=== PATIENT | female | born 1940 | race Caucasian/White ===

== ENCOUNTER 2020-04-14 13:24 | Inpatient (IN) ==
[2020-04-14] MEDS ORDERED: ASPIRIN 325 MG TABLET PO STA (13:34)
[2020-04-14 14:18] LABS: Basophils % 0.3 % (0.0-0.8); Hematocrit 44.9 VOL% (35.7-47.0); Hemoglobin 14.6 GM/DL (12.0-16.0); Immature Granulocytes % 0.8 %; Immature Granulocytes Absolute 0.06 #; Lymphocytes # 0.8 10*3/uL (1.4-4.0); Lymphocytes % 10.5 % (21.3-54.2); Mean Corpuscular HGB Conc 32.5 GM/DL (32-36); Mean Corpuscular Volume 90.2 FL (87-102); Mean Platelet Volume 10.5 FL (9.6-12.0); Monocytes % 9.1 % (1.7-12.7); Neutrophils % 79.3 % (38.7-73.9); Platelet Count 211 T/CUMM (130-400); Red Blood Count 4.98 MC/CUMM (3.8-5.5); Red Cell Distribution Width 13.5 % (9.3-17.3); White Blood Count 7.7 T/CUMM (4-12)
[2020-04-14 14:28] LABS: PT Patient Result 10.9 SECS (9.8-11.9)
[2020-04-14 14:32] LABS: ABG Base Excess 9.8 MMOL/L (-2.5-2.5); ABG HCO3 33.3 MMOL/L (20-26); ABG Oxygen Saturation 91.6 % (95-100); ABG PCO2 50.1 MM HG (35-48); ABG PH 7.458 (7.35-7.45); ABG PO2 59.6 MM HG (80-95); ABG TCO2 30.7 MMOL/L (23-27)
[2020-04-14] MEDS ORDERED: DEXAMETHASONE 4 MG/1 ML VIAL IV STA (14:39)
[2020-04-14] MEDS ORDERED: MEROPENEM 2,000 MG in SODIUM CHLORIDE 0.9% 100 ML IV ONE (14:40)
[2020-04-14 14:45] LABS: Alanine Aminotransferase 18 U/L (13-56); Albumin 2.7 G/DL (3.4-5.0); Alkaline Phosphatase 89 U/L (45-117); Aspartate Amino Transferase 31 U/L (0-37); Blood Urea Nitrogen 30 MG/DL (7-18); Calcium 8.5 MG/DL (8.5-10.1); Estimated Glom Filtration Rate 53 ML/MIN; Glucose 219 MG/DL (74-106); Osmolality,Calculated 293.3 MOS/KG (273-304); Total Protein 7.1 G/DL (6.4-8.3)
[2020-04-14] MEDS ORDERED: POTASSIUM CHLORIDE 20 MEQ TABLET PO STA (15:35)
[2020-04-14] MEDS ORDERED: MEROPENEM 500 MG VIAL ONE (16:29)
[2020-04-14] MEDS ORDERED: ONDANSETRON 4 MG/2 ML VIAL IV PRN (16:41)
[2020-04-14] MEDS ORDERED: DEXTROSE 50% 25 GM/50 ML VIAL IV PRN (16:41)
[2020-04-14] MEDS ORDERED: GLUCAGON 1 MG VIAL IM PRN (16:41)
[2020-04-14] MEDS: ENOXAPARIN 40 MG/0.4 ML SYRINGE SUBCUT SCH (18:19)
[2020-04-14] MEDS: INSULIN LISPRO 100 UNIT/ML SUBCUT SCH (21:05)
[2020-04-14] MEDS: FAMOTIDINE 20 MG TABLET PO SCH (21:05)
[2020-04-14] MEDS: ASCORBIC ACID 500 MG TABLET PO SCH (21:05)
[2020-04-15] MEDS: ENOXAPARIN 40 MG/0.4 ML SYRINGE SUBCUT SCH ×2 (05:32→16:38)
[2020-04-15 06:14] LABS: Basophils % 0.2 % (0.0-0.8); Hematocrit 43.4 VOL% (35.7-47.0); Hemoglobin 13.9 GM/DL (12.0-16.0); Immature Granulocytes % 0.6 %; Immature Granulocytes Absolute 0.03 #; Lymphocytes # 0.6 10*3/uL (1.4-4.0); Lymphocytes % 12.3 % (21.3-54.2); Mean Corpuscular Volume 91.6 FL (87-102); Mean Platelet Volume 11.1 FL (9.6-12.0); Monocytes % 3.6 % (1.7-12.7); Neutrophils % 83.3 % (38.7-73.9); Platelet Count 205 T/CUMM (130-400); Red Blood Count 4.74 MC/CUMM (3.8-5.5); Red Cell Distribution Width 13.1 % (9.3-17.3)
[2020-04-15 06:30] LABS: PT Patient Result 10.8 SECS (9.8-11.9)
[2020-04-15 06:45] LABS: Albumin 2.3 G/DL (3.4-5.0); Bilirubin,Total 0.8 MG/DL (0.2-1.0); Calcium 8.6 MG/DL (8.5-10.1); Ferritin 219.1 ng/ml (8-252); Osmolality,Calculated 294.3 MOS/KG (273-304); Risk Ratio 2.33; Thyroid Stimulating Hormone 0.41 uIU/ml (0.358-3.74); Total Protein 6.4 G/DL (6.4-8.3)
[2020-04-15 07:18] LABS: Sedimentation Rate-Westergren 68 MM/HR (0-30)
[2020-04-15] MEDS: FAMOTIDINE 20 MG TABLET PO SCH ×2 (09:22→21:29)
[2020-04-15] MEDS: CHOLECALCIFEROL 1,000 UNIT TABLET PO SCH (09:22)
[2020-04-15] MEDS: INSULIN LISPRO 100 UNIT/ML SUBCUT SCH ×4 (09:22→21:29)
[2020-04-15] MEDS: ZINC GLUCONATE 50 MG TABLET PO SCH (09:23)
[2020-04-15] MEDS: DEXAMETHASONE 4 MG/1 ML VIAL IV SCH (09:23)
[2020-04-15] MEDS: ASCORBIC ACID 500 MG TABLET PO SCH ×2 (09:23→21:27)
[2020-04-15] MEDS ORDERED: REMDESIVIR 200 MG in SODIUM CHLORIDE 0.9% 210 ML IV ONE (11:00)
[2020-04-15] MEDS: MEROPENEM 500 MG in SODIUM CHLORIDE 0.9% 100 ML IV SCH ×3 (11:49→21:41)
[2020-04-15] MEDS: amLODIPine 5 MG TABLET PO SCH (12:15)
[2020-04-15] MEDS: PANTOPRAZOLE 40 MG TABLET PO SCH (12:15)
[2020-04-15] MEDS: LEVOTHYROXINE 100 MCG TABLET PO SCH (12:15)
[2020-04-15] MEDS: allopurinoL 300 MG TABLET PO SCH (12:15)
[2020-04-15] MEDS: MONTELUKAST 10 MG TABLET PO SCH (12:15)
[2020-04-15] MEDS: carvediloL 25 MG TABLET PO SCH ×2 (12:15→21:27)
[2020-04-15] MEDS: MELATONIN 3 MG TABLET PO PRN (21:26)
[2020-04-16] MEDS: MEROPENEM 500 MG in SODIUM CHLORIDE 0.9% 100 ML IV SCH ×3 (05:17→17:00)
[2020-04-16] MEDS: ENOXAPARIN 40 MG/0.4 ML SYRINGE SUBCUT SCH ×2 (05:17→17:00)
[2020-04-16 05:33] LABS: Basophils % 0.1 % (0.0-0.8); Hematocrit 44.5 VOL% (35.7-47.0); Hemoglobin 14.2 GM/DL (12.0-16.0); Immature Granulocytes % 0.6 %; Immature Granulocytes Absolute 0.04 #; Lymphocytes # 0.8 10*3/uL (1.4-4.0); Lymphocytes % 10.5 % (21.3-54.2); Mean Corpuscular HGB Conc 31.9 GM/DL (32-36); Mean Corpuscular Volume 91.6 FL (87-102); Mean Platelet Volume 10.9 FL (9.6-12.0); Monocytes % 8.3 % (1.7-12.7); Neutrophils % 80.5 % (38.7-73.9); Platelet Count 231 T/CUMM (130-400); Red Blood Count 4.86 MC/CUMM (3.8-5.5); Red Cell Distribution Width 13.1 % (9.3-17.3); White Blood Count 7.1 T/CUMM (4-12)
[2020-04-16 05:49] LABS: Albumin 2.4 G/DL (3.4-5.0); Bilirubin,Total 0.5 MG/DL (0.2-1.0); Calcium 8.7 MG/DL (8.5-10.1); Ferritin 295.1 ng/ml (8-252); Osmolality,Calculated 294.1 MOS/KG (273-304); Total Protein 6.4 G/DL (6.4-8.3)
[2020-04-16] MEDS: LEVOTHYROXINE 100 MCG TABLET PO SCH (06:11)
[2020-04-16 07:07] LABS: Sedimentation Rate-Westergren 70 MM/HR (0-30)
[2020-04-16] MEDS ORDERED: SODIUM CHLORIDE 0.9% 1,000 ML IV PRN (08:47)
[2020-04-16] MEDS: DEXAMETHASONE 4 MG/1 ML VIAL IV SCH (09:36)
[2020-04-16] MEDS: PANTOPRAZOLE 40 MG TABLET PO SCH (09:36)
[2020-04-16] MEDS: allopurinoL 300 MG TABLET PO SCH (09:36)
[2020-04-16] MEDS: FAMOTIDINE 20 MG TABLET PO SCH ×2 (09:36→20:10)
[2020-04-16] MEDS: MONTELUKAST 10 MG TABLET PO SCH (09:36)
[2020-04-16] MEDS: ASCORBIC ACID 500 MG TABLET PO SCH ×2 (09:36→20:10)
[2020-04-16] MEDS: CHOLECALCIFEROL 1,000 UNIT TABLET PO SCH (09:36)
[2020-04-16] MEDS: amLODIPine 5 MG TABLET PO SCH (09:37)
[2020-04-16] MEDS: carvediloL 25 MG TABLET PO SCH ×2 (09:37→20:10)
[2020-04-16] MEDS: INSULIN LISPRO 100 UNIT/ML SUBCUT SCH ×4 (09:38→20:10)
[2020-04-16] MEDS: REMDESIVIR 100 MG in SODIUM CHLORIDE 0.9% 100 ML IV SCH (09:45)
[2020-04-16] MEDS: ZINC OXIDE 16% PASTE 57 GM TUBE TOP SCH ×2 (10:15→20:11)
[2020-04-16] MEDS: ZINC GLUCONATE 50 MG TABLET PO SCH (10:15)
[2020-04-16] MEDS ORDERED: LINACLOTIDE 145 MCG CAPSULE PO PRN (11:41)
[2020-04-16] MEDS: MELATONIN 3 MG TABLET PO PRN (20:09)
[2020-04-17] MEDS: MEROPENEM 500 MG in SODIUM CHLORIDE 0.9% 100 ML IV SCH ×5 (00:37→21:30)
[2020-04-17 05:42] LABS: Basophils % 0.1 % (0.0-0.8); Hematocrit 40.1 VOL% (35.7-47.0); Hemoglobin 12.9 GM/DL (12.0-16.0); Immature Granulocytes % 0.7 %; Immature Granulocytes Absolute 0.05 #; Lymphocytes # 0.7 10*3/uL (1.4-4.0); Lymphocytes % 10.5 % (21.3-54.2); Mean Corpuscular HGB Conc 32.2 GM/DL (32-36); Mean Corpuscular Volume 90.3 FL (87-102); Mean Platelet Volume 10.5 FL (9.6-12.0); Monocytes % 8.6 % (1.7-12.7); Neutrophils % 80.1 % (38.7-73.9); Platelet Count 255 T/CUMM (130-400); Red Blood Count 4.44 MC/CUMM (3.8-5.5); White Blood Count 6.8 T/CUMM (4-12)
[2020-04-17] MEDS: ENOXAPARIN 40 MG/0.4 ML SYRINGE SUBCUT SCH ×2 (05:43→17:10)
[2020-04-17 06:02] LABS: Albumin 2.2 G/DL (3.4-5.0); Bilirubin,Total 0.7 MG/DL (0.2-1.0); Calcium 8.6 MG/DL (8.5-10.1); Ferritin 316.5 ng/ml (8-252); Osmolality,Calculated 290.4 MOS/KG (273-304); Total Protein 5.9 G/DL (6.4-8.3)
[2020-04-17] MEDS: LEVOTHYROXINE 100 MCG TABLET PO SCH (06:11)
[2020-04-17] MEDS: carvediloL 25 MG TABLET PO SCH ×2 (08:15→20:08)
[2020-04-17] MEDS: guaiFENesin/DM ER 600-30 MG TABLET PO PRN (08:15)
[2020-04-17] MEDS: DEXAMETHASONE 4 MG/1 ML VIAL IV SCH (08:15)
[2020-04-17] MEDS: PANTOPRAZOLE 40 MG TABLET PO SCH (08:16)
[2020-04-17] MEDS: CHOLECALCIFEROL 1,000 UNIT TABLET PO SCH (08:16)
[2020-04-17] MEDS: allopurinoL 300 MG TABLET PO SCH (08:16)
[2020-04-17] MEDS: FAMOTIDINE 20 MG TABLET PO SCH ×2 (08:16→20:08)
[2020-04-17] MEDS: amLODIPine 5 MG TABLET PO SCH (08:16)
[2020-04-17] MEDS: ASCORBIC ACID 500 MG TABLET PO SCH ×2 (08:16→20:08)
[2020-04-17] MEDS: MONTELUKAST 10 MG TABLET PO SCH (08:16)
[2020-04-17] MEDS: REMDESIVIR 100 MG in SODIUM CHLORIDE 0.9% 100 ML IV SCH (08:17)
[2020-04-17] MEDS: INSULIN LISPRO 100 UNIT/ML SUBCUT SCH ×4 (08:37→20:08)
[2020-04-17] MEDS: ZINC OXIDE 16% PASTE 57 GM TUBE TOP SCH ×2 (08:38→20:08)
[2020-04-17] MEDS: ZINC GLUCONATE 50 MG TABLET PO SCH (11:23)
[2020-04-17] MEDS: MELATONIN 3 MG TABLET PO PRN (20:07)
[2020-04-18] MEDS: MEROPENEM 500 MG in SODIUM CHLORIDE 0.9% 100 ML IV SCH ×3 (03:42→16:44)
[2020-04-18] MEDS: ENOXAPARIN 40 MG/0.4 ML SYRINGE SUBCUT SCH ×2 (04:17→16:44)
[2020-04-18 05:31] LABS: Calcium 8.6 MG/DL (8.5-10.1); Osmolality,Calculated 289.3 MOS/KG (273-304)
[2020-04-18] MEDS: LEVOTHYROXINE 100 MCG TABLET PO SCH (06:01)
[2020-04-18] MEDS: DEXAMETHASONE 4 MG/1 ML VIAL IV SCH (09:00)
[2020-04-18] MEDS: REMDESIVIR 100 MG in SODIUM CHLORIDE 0.9% 100 ML IV SCH (10:50)
[2020-04-18] MEDS: carvediloL 25 MG TABLET PO SCH ×2 (10:56→20:19)
[2020-04-18] MEDS: ZINC OXIDE 16% PASTE 57 GM TUBE TOP SCH (10:56)
[2020-04-18] MEDS: INSULIN LISPRO 100 UNIT/ML SUBCUT SCH ×3 (10:56→20:20)
[2020-04-18] MEDS: PANTOPRAZOLE 40 MG TABLET PO SCH (10:57)
[2020-04-18] MEDS: amLODIPine 5 MG TABLET PO SCH (10:57)
[2020-04-18] MEDS: MONTELUKAST 10 MG TABLET PO SCH (10:57)
[2020-04-18] MEDS: FAMOTIDINE 20 MG TABLET PO SCH ×2 (10:57→20:19)
[2020-04-18] MEDS: ASCORBIC ACID 500 MG TABLET PO SCH ×2 (10:58→20:19)
[2020-04-18] MEDS: allopurinoL 300 MG TABLET PO SCH (10:58)
[2020-04-18] MEDS: CHOLECALCIFEROL 1,000 UNIT TABLET PO SCH (10:58)
[2020-04-18] MEDS: ZINC GLUCONATE 50 MG TABLET PO SCH (10:58)
[2020-04-18] MEDS ORDERED: POTASSIUM CHLORIDE 20 MEQ TABLET PO PRN (12:08)
[2020-04-18 17:53] LABS: Bilirubin,Urine Negative (Negative); Blood, Urine Negative (Negative); Glucose,Urine (UA) 50 mg/dL (Negative); Ketones,Urine 20 mg/dL (Negative); Nitrite,Urine Negative (Negative); Protein,Urine Negative; Squamous Epithelial Cell,Urine Occasional /HPF (0-10); Urine Appearance CLEAR (Clear); Urine Color Straw (Yellow); Urine Specific Gravity 1.011 (1.001-1.035)
[2020-04-19] MEDS: ZINC OXIDE 16% PASTE 57 GM TUBE TOP SCH ×3 (01:13→20:27)
[2020-04-19 04:59] LABS: Basophils % 0.2 % (0.0-0.8); Eosinophils # 0.1 10*3/uL (0.0-0.87); Eosinophils % 0.7 % (0.00-10.9); Hematocrit 44.5 VOL% (35.7-47.0); Hemoglobin 14.8 GM/DL (12.0-16.0); Immature Granulocytes % 1.5 %; Immature Granulocytes Absolute 0.14 #; Lymphocytes # 1.1 10*3/uL (1.4-4.0); Lymphocytes % 11.7 % (21.3-54.2); Mean Corpuscular HGB Conc 33.3 GM/DL (32-36); Mean Corpuscular Volume 87.8 FL (87-102); Mean Platelet Volume 10.4 FL (9.6-12.0); Monocytes % 9.6 % (1.7-12.7); Neutrophils % 76.3 % (38.7-73.9); Platelet Count 309 T/CUMM (130-400); Red Blood Count 5.07 MC/CUMM (3.8-5.5); Red Cell Distribution Width 12.9 % (9.3-17.3); White Blood Count 9.2 T/CUMM (4-12)
[2020-04-19 05:00] LABS: Albumin 2.5 G/DL (3.4-5.0); Bilirubin,Total 1.3 MG/DL (0.2-1.0); Calcium 8.3 MG/DL (8.5-10.1); Ferritin 426.6 ng/ml (8-252); Osmolality,Calculated 287.3 MOS/KG (273-304); Total Protein 6.3 G/DL (6.4-8.3)
[2020-04-19] MEDS: POTASSIUM CHLORIDE 20 MEQ TABLET PO PRN ×4 (06:00→16:01)
[2020-04-19] MEDS: MEROPENEM 500 MG in SODIUM CHLORIDE 0.9% 100 ML IV SCH ×6 (06:00→22:11)
[2020-04-19] MEDS: LEVOTHYROXINE 100 MCG TABLET PO SCH (06:00)
[2020-04-19] MEDS: ENOXAPARIN 40 MG/0.4 ML SYRINGE SUBCUT SCH ×2 (06:00→16:02)
[2020-04-19] MEDS: carvediloL 25 MG TABLET PO SCH ×2 (08:34→20:24)
[2020-04-19] MEDS: ASCORBIC ACID 500 MG TABLET PO SCH ×2 (08:34→20:24)
[2020-04-19] MEDS: allopurinoL 300 MG TABLET PO SCH (08:35)
[2020-04-19] MEDS: PANTOPRAZOLE 40 MG TABLET PO SCH (08:35)
[2020-04-19] MEDS: CHOLECALCIFEROL 1,000 UNIT TABLET PO SCH (08:35)
[2020-04-19] MEDS: MONTELUKAST 10 MG TABLET PO SCH (08:35)
[2020-04-19] MEDS: amLODIPine 5 MG TABLET PO SCH (08:35)
[2020-04-19] MEDS: FAMOTIDINE 20 MG TABLET PO SCH ×2 (08:36→20:24)
[2020-04-19] MEDS: DEXAMETHASONE 4 MG/1 ML VIAL IV SCH (08:36)
[2020-04-19] MEDS: INSULIN LISPRO 100 UNIT/ML SUBCUT SCH ×4 (08:37→20:25)
[2020-04-19] MEDS: REMDESIVIR 100 MG in SODIUM CHLORIDE 0.9% 100 ML IV SCH (08:45)
[2020-04-19] MEDS ORDERED: MAGNESIUM SULF RIDER 4 GM in PREMIX 1 EACH IV ONE (09:00)
[2020-04-19] MEDS: ZINC GLUCONATE 50 MG TABLET PO SCH (11:22)
[2020-04-19] MEDS: MELATONIN 3 MG TABLET PO PRN (20:23)
[2020-04-20] MEDS: MEROPENEM 500 MG in SODIUM CHLORIDE 0.9% 100 ML IV SCH ×4 (05:05→21:51)
[2020-04-20 05:11] LABS: Basophils % 0.3 % (0.0-0.8); Eosinophils % 0.1 % (0.00-10.9); Hematocrit 48.1 VOL% (35.7-47.0); Hemoglobin 15.9 GM/DL (12.0-16.0); Immature Granulocytes Absolute 0.19 #; Lymphocytes % 10.9 % (21.3-54.2); Mean Corpuscular HGB Conc 33.1 GM/DL (32-36); Mean Corpuscular Volume 87.3 FL (87-102); Mean Platelet Volume 10.1 FL (9.6-12.0); Neutrophils % 78.7 % (38.7-73.9); Platelet Count 362 T/CUMM (130-400); Red Blood Count 5.51 MC/CUMM (3.8-5.5); Red Cell Distribution Width 12.9 % (9.3-17.3); White Blood Count 9.4 T/CUMM (4-12)
[2020-04-20 05:43] LABS: Albumin 2.6 G/DL (3.4-5.0); Bilirubin,Total 1.1 MG/DL (0.2-1.0); Calcium 8.8 MG/DL (8.5-10.1); Osmolality,Calculated 287.4 MOS/KG (273-304); Total Protein 7.1 G/DL (6.4-8.3)
[2020-04-20 05:57] LABS: Band Neutrophils 1 % (0-10); Lymphocytes 15 % (20-55); Platelet Estimate Normal; Segmented Neutrophils 79 % (50-85); Total Cells Counted 100
[2020-04-20] MEDS: ENOXAPARIN 40 MG/0.4 ML SYRINGE SUBCUT SCH ×2 (06:16→19:16)
[2020-04-20] MEDS: LEVOTHYROXINE 100 MCG TABLET PO SCH (06:42)
[2020-04-20] MEDS: INSULIN LISPRO 100 UNIT/ML SUBCUT SCH ×4 (10:01→21:56)
[2020-04-20] MEDS: ZINC OXIDE 16% PASTE 57 GM TUBE TOP SCH ×2 (10:01→20:37)
[2020-04-20] MEDS: carvediloL 25 MG TABLET PO SCH ×2 (10:02→20:37)
[2020-04-20] MEDS: CHOLECALCIFEROL 1,000 UNIT TABLET PO SCH (10:02)
[2020-04-20] MEDS: ZINC GLUCONATE 50 MG TABLET PO SCH (10:02)
[2020-04-20] MEDS: amLODIPine 5 MG TABLET PO SCH (10:02)
[2020-04-20] MEDS: FAMOTIDINE 20 MG TABLET PO SCH ×2 (10:02→20:37)
[2020-04-20] MEDS: MONTELUKAST 10 MG TABLET PO SCH (10:02)
[2020-04-20] MEDS: ASCORBIC ACID 500 MG TABLET PO SCH ×2 (10:02→20:37)
[2020-04-20] MEDS: DEXAMETHASONE 4 MG/1 ML VIAL IV SCH (10:02)
[2020-04-20] MEDS: PANTOPRAZOLE 40 MG TABLET PO SCH (10:02)
[2020-04-20] MEDS: allopurinoL 300 MG TABLET PO SCH (10:02)
[2020-04-20] MEDS ORDERED: FUROSEMIDE 40 MG/4 ML VIAL IV ONE (13:39)
[2020-04-20] MEDS: MELATONIN 3 MG TABLET PO PRN (20:37)
[2020-04-20] MEDS: guaiFENesin/DM ER 600-30 MG TABLET PO PRN (20:37)
[2020-04-21] MEDS ORDERED: diphenhydrAMINE 50 MG/1 ML VIAL IV ONE (03:51)
[2020-04-21 04:36] LABS: ABG Base Excess 9.6 MMOL/L (-2.5-2.5); ABG HCO3 33.2 MMOL/L (20-26); ABG Oxygen Saturation 91.2 % (95-100); ABG PCO2 42.7 MM HG (35-48); ABG PH 7.508 (7.35-7.45); ABG PO2 56.1 MM HG (80-95); ABG TCO2 28.4 MMOL/L (23-27)
[2020-04-21] MEDS: MEROPENEM 500 MG in SODIUM CHLORIDE 0.9% 100 ML IV SCH ×4 (04:37→21:37)
[2020-04-21] MEDS: ENOXAPARIN 40 MG/0.4 ML SYRINGE SUBCUT SCH ×2 (05:59→20:36)
[2020-04-21] MEDS: LEVOTHYROXINE 100 MCG TABLET PO SCH (06:14)
[2020-04-21 06:27] LABS: Albumin 2.6 G/DL (3.4-5.0); Bilirubin,Total 0.8 MG/DL (0.2-1.0); Osmolality,Calculated 282.7 MOS/KG (273-304); Total Protein 7.1 G/DL (6.4-8.3)
[2020-04-21] MEDS: INSULIN LISPRO 100 UNIT/ML SUBCUT SCH ×4 (08:30→20:35)
[2020-04-21] MEDS: ZINC GLUCONATE 50 MG TABLET PO SCH (08:31)
[2020-04-21] MEDS: CHOLECALCIFEROL 1,000 UNIT TABLET PO SCH (08:31)
[2020-04-21] MEDS: amLODIPine 5 MG TABLET PO SCH (08:31)
[2020-04-21] MEDS: carvediloL 25 MG TABLET PO SCH ×2 (08:31→20:35)
[2020-04-21] MEDS: MONTELUKAST 10 MG TABLET PO SCH (08:31)
[2020-04-21] MEDS: DEXAMETHASONE 4 MG/1 ML VIAL IV SCH (08:31)
[2020-04-21] MEDS: PANTOPRAZOLE 40 MG TABLET PO SCH (08:31)
[2020-04-21] MEDS: ASCORBIC ACID 500 MG TABLET PO SCH ×2 (08:32→20:37)
[2020-04-21] MEDS: allopurinoL 300 MG TABLET PO SCH (08:32)
[2020-04-21] MEDS: ZINC OXIDE 16% PASTE 57 GM TUBE TOP SCH ×2 (08:32→20:35)
[2020-04-21] MEDS: FAMOTIDINE 20 MG TABLET PO SCH ×2 (08:32→20:37)
[2020-04-21] MEDS: MELATONIN 3 MG TABLET PO PRN (20:37)
[2020-04-21] MEDS: guaiFENesin/DM ER 600-30 MG TABLET PO PRN (20:38)
[2020-04-22 05:14] LABS: Basophils % 0.3 % (0.0-0.8); Hematocrit 46.5 VOL% (35.7-47.0); Hemoglobin 15.3 GM/DL (12.0-16.0); Immature Granulocytes % 2.1 %; Lymphocytes # 0.9 10*3/uL (1.4-4.0); Mean Corpuscular HGB Conc 32.9 GM/DL (32-36); Mean Corpuscular Volume 88.9 FL (87-102); Neutrophils % 82.6 % (38.7-73.9); Platelet Count 277 T/CUMM (130-400); Red Blood Count 5.23 MC/CUMM (3.8-5.5); White Blood Count 9.5 T/CUMM (4-12)
[2020-04-22] MEDS: MEROPENEM 500 MG in SODIUM CHLORIDE 0.9% 100 ML IV SCH ×3 (05:16→16:17)
[2020-04-22 05:44] LABS: Calcium 8.6 MG/DL (8.5-10.1); Osmolality,Calculated 280.7 MOS/KG (273-304)
[2020-04-22] MEDS: LEVOTHYROXINE 100 MCG TABLET PO SCH (06:00)
[2020-04-22] MEDS: INSULIN LISPRO 100 UNIT/ML SUBCUT SCH ×4 (08:23→21:12)
[2020-04-22] MEDS: ASCORBIC ACID 500 MG TABLET PO SCH ×2 (08:24→20:50)
[2020-04-22] MEDS: DEXAMETHASONE 4 MG/1 ML VIAL IV SCH (08:24)
[2020-04-22] MEDS: FAMOTIDINE 20 MG TABLET PO SCH ×2 (08:25→20:50)
[2020-04-22] MEDS: ZINC OXIDE 16% PASTE 57 GM TUBE TOP SCH ×2 (08:25→20:50)
[2020-04-22] MEDS: MONTELUKAST 10 MG TABLET PO SCH (08:25)
[2020-04-22] MEDS: ZINC GLUCONATE 50 MG TABLET PO SCH (08:25)
[2020-04-22] MEDS: PANTOPRAZOLE 40 MG TABLET PO SCH (08:25)
[2020-04-22] MEDS: ENOXAPARIN 40 MG/0.4 ML SYRINGE SUBCUT SCH ×2 (08:25→20:50)
[2020-04-22] MEDS: CHOLECALCIFEROL 1,000 UNIT TABLET PO SCH (08:25)
[2020-04-22] MEDS: allopurinoL 300 MG TABLET PO SCH (08:25)
[2020-04-22] MEDS: amLODIPine 5 MG TABLET PO SCH (08:25)
[2020-04-22] MEDS: carvediloL 25 MG TABLET PO SCH ×2 (08:25→20:50)
[2020-04-22] MEDS: CLORAZEPATE 3.75 MG TABLET PO PRN ×2 (11:55→20:50)
[2020-04-22] MEDS: guaiFENesin/DM ER 600-30 MG TABLET PO PRN (20:50)
[2020-04-23 05:22] LABS: Basophils % 0.2 % (0.0-0.8); Eosinophils % 0.1 % (0.00-10.9); Hematocrit 43.5 VOL% (35.7-47.0); Hemoglobin 14.1 GM/DL (12.0-16.0); Immature Granulocytes Absolute 0.18 #; Lymphocytes # 0.9 10*3/uL (1.4-4.0); Lymphocytes % 9.4 % (21.3-54.2); Mean Corpuscular HGB Conc 32.4 GM/DL (32-36); Mean Corpuscular Volume 88.8 FL (87-102); Mean Platelet Volume 10.6 FL (9.6-12.0); Monocytes % 7.9 % (1.7-12.7); Neutrophils % 80.4 % (38.7-73.9); Platelet Count 268 T/CUMM (130-400); Red Cell Distribution Width 12.8 % (9.3-17.3); White Blood Count 9.1 T/CUMM (4-12)
[2020-04-23 05:48] LABS: Albumin 2.3 G/DL (3.4-5.0); Bilirubin,Total 0.7 MG/DL (0.2-1.0); Calcium 8.8 MG/DL (8.5-10.1); Osmolality,Calculated 278.7 MOS/KG (273-304)
[2020-04-23] MEDS: LEVOTHYROXINE 100 MCG TABLET PO SCH (06:07)
[2020-04-23] MEDS: INSULIN LISPRO 100 UNIT/ML SUBCUT SCH ×4 (08:40→20:52)
[2020-04-23] MEDS: carvediloL 25 MG TABLET PO SCH ×2 (08:59→20:00)
[2020-04-23] MEDS: MONTELUKAST 10 MG TABLET PO SCH (08:59)
[2020-04-23] MEDS: CHOLECALCIFEROL 1,000 UNIT TABLET PO SCH (08:59)
[2020-04-23] MEDS: DEXAMETHASONE 4 MG/1 ML VIAL IV SCH (08:59)
[2020-04-23] MEDS: ENOXAPARIN 40 MG/0.4 ML SYRINGE SUBCUT SCH ×2 (08:59→20:00)
[2020-04-23] MEDS: ZINC OXIDE 16% PASTE 57 GM TUBE TOP SCH ×2 (08:59→20:00)
[2020-04-23] MEDS: ASCORBIC ACID 500 MG TABLET PO SCH ×2 (08:59→20:00)
[2020-04-23] MEDS: FAMOTIDINE 20 MG TABLET PO SCH ×2 (08:59→20:00)
[2020-04-23] MEDS: allopurinoL 300 MG TABLET PO SCH (08:59)
[2020-04-23] MEDS: PANTOPRAZOLE 40 MG TABLET PO SCH (08:59)
[2020-04-23] MEDS: amLODIPine 5 MG TABLET PO SCH (08:59)
[2020-04-23] MEDS: ZINC GLUCONATE 50 MG TABLET PO SCH (08:59)
[2020-04-23] MEDS: CLORAZEPATE 3.75 MG TABLET PO PRN (20:00)
[2020-04-24 04:42] LABS: Basophils % 0.2 % (0.0-0.8); Eosinophils % 0.1 % (0.00-10.9); Hematocrit 43.7 VOL% (35.7-47.0); Hemoglobin 14.3 GM/DL (12.0-16.0); Immature Granulocytes % 1.6 %; Immature Granulocytes Absolute 0.14 #; Lymphocytes # 0.8 10*3/uL (1.4-4.0); Lymphocytes % 9.8 % (21.3-54.2); Mean Corpuscular HGB Conc 32.7 GM/DL (32-36); Mean Corpuscular Volume 88.1 FL (87-102); Mean Platelet Volume 10.3 FL (9.6-12.0); Monocytes % 10.1 % (1.7-12.7); Neutrophils % 78.2 % (38.7-73.9); Platelet Count 241 T/CUMM (130-400); Red Blood Count 4.96 MC/CUMM (3.8-5.5); Red Cell Distribution Width 12.6 % (9.3-17.3); White Blood Count 8.5 T/CUMM (4-12)
[2020-04-24 05:21] LABS: Albumin 2.3 G/DL (3.4-5.0); Bilirubin,Total 0.6 MG/DL (0.2-1.0); Calcium 8.5 MG/DL (8.5-10.1); Osmolality,Calculated 276.8 MOS/KG (273-304)
[2020-04-24] MEDS: LEVOTHYROXINE 100 MCG TABLET PO SCH (06:05)
[2020-04-24] MEDS: allopurinoL 300 MG TABLET PO SCH (08:42)
[2020-04-24] MEDS: carvediloL 25 MG TABLET PO SCH ×2 (08:42→20:10)
[2020-04-24] MEDS: ENOXAPARIN 40 MG/0.4 ML SYRINGE SUBCUT SCH ×2 (08:42→20:10)
[2020-04-24] MEDS: ZINC OXIDE 16% PASTE 57 GM TUBE TOP SCH ×2 (08:42→20:10)
[2020-04-24] MEDS: amLODIPine 5 MG TABLET PO SCH (08:42)
[2020-04-24] MEDS: ZINC GLUCONATE 50 MG TABLET PO SCH (08:42)
[2020-04-24] MEDS: FAMOTIDINE 20 MG TABLET PO SCH ×2 (08:42→20:10)
[2020-04-24] MEDS: MONTELUKAST 10 MG TABLET PO SCH (08:42)
[2020-04-24] MEDS: PANTOPRAZOLE 40 MG TABLET PO SCH (08:42)
[2020-04-24] MEDS: ASCORBIC ACID 500 MG TABLET PO SCH ×2 (08:42→20:10)
[2020-04-24] MEDS: CHOLECALCIFEROL 1,000 UNIT TABLET PO SCH (08:42)
[2020-04-24] MEDS: DEXAMETHASONE 4 MG/1 ML VIAL IV SCH (08:42)
[2020-04-24] MEDS: INSULIN LISPRO 100 UNIT/ML SUBCUT SCH ×4 (09:56→20:40)
[2020-04-24] MEDS: guaiFENesin/DM ER 600-30 MG TABLET PO PRN (20:10)
[2020-04-24] MEDS: CLORAZEPATE 3.75 MG TABLET PO PRN (20:10)
[2020-04-25 06:06] LABS: Basophils % 0.3 % (0.0-0.8); Eosinophils % 0.1 % (0.00-10.9); Hematocrit 44.8 VOL% (35.7-47.0); Hemoglobin 14.8 GM/DL (12.0-16.0); Immature Granulocytes % 1.7 %; Immature Granulocytes Absolute 0.13 #; Lymphocytes # 0.7 10*3/uL (1.4-4.0); Lymphocytes % 8.7 % (21.3-54.2); Mean Corpuscular Volume 88.9 FL (87-102); Mean Platelet Volume 10.7 FL (9.6-12.0); Neutrophils % 81.2 % (38.7-73.9); Platelet Count 246 T/CUMM (130-400); Red Blood Count 5.04 MC/CUMM (3.8-5.5); Red Cell Distribution Width 12.8 % (9.3-17.3); White Blood Count 7.8 T/CUMM (4-12)
[2020-04-25] MEDS: LEVOTHYROXINE 100 MCG TABLET PO SCH (06:11)
[2020-04-25 06:23] LABS: Albumin 2.6 G/DL (3.4-5.0); Bilirubin,Total 0.7 MG/DL (0.2-1.0); Calcium 9.1 MG/DL (8.5-10.1); Ferritin 361.8 ng/ml (8-252); Osmolality,Calculated 282.7 MOS/KG (273-304); Total Protein 6.4 G/DL (6.4-8.3)
[2020-04-25] MEDS: INSULIN LISPRO 100 UNIT/ML SUBCUT SCH ×4 (08:12→20:36)
[2020-04-25] MEDS: ENOXAPARIN 40 MG/0.4 ML SYRINGE SUBCUT SCH ×2 (08:12→20:36)
[2020-04-25] MEDS: CHOLECALCIFEROL 1,000 UNIT TABLET PO SCH (08:12)
[2020-04-25] MEDS: allopurinoL 300 MG TABLET PO SCH (08:13)
[2020-04-25] MEDS: amLODIPine 5 MG TABLET PO SCH (08:13)
[2020-04-25] MEDS: carvediloL 25 MG TABLET PO SCH ×2 (08:13→20:35)
[2020-04-25] MEDS: FAMOTIDINE 20 MG TABLET PO SCH ×2 (08:13→20:35)
[2020-04-25] MEDS: PANTOPRAZOLE 40 MG TABLET PO SCH (08:13)
[2020-04-25] MEDS: MONTELUKAST 10 MG TABLET PO SCH (08:13)
[2020-04-25] MEDS: ASCORBIC ACID 500 MG TABLET PO SCH ×2 (08:13→20:35)
[2020-04-25] MEDS: ZINC GLUCONATE 50 MG TABLET PO SCH (08:13)
[2020-04-25] MEDS: ZINC OXIDE 16% PASTE 57 GM TUBE TOP SCH ×2 (08:46→20:36)
[2020-04-25] MEDS ORDERED: FUROSEMIDE 40 MG/4 ML VIAL IV ONE (15:45)
[2020-04-25] MEDS: DOCUSATE SODIUM 100 MG CAPSULE PO PRN (20:35)
[2020-04-25] MEDS: MELATONIN 3 MG TABLET PO PRN (20:36)
[2020-04-25] MEDS: CLORAZEPATE 3.75 MG TABLET PO PRN (20:36)
[2020-04-25] MEDS: guaiFENesin/DM ER 600-30 MG TABLET PO PRN (20:36)
[2020-04-26] MEDS: guaiFENesin 200 MG/10 ML UDCUP PO PRN ×3 (01:26→21:51)
[2020-04-26] MEDS: LACTULOSE 20 GM/30 ML UDCUP PO PRN (01:26)
[2020-04-26 05:21] LABS: Basophils # 0.1 10*3/uL (0.0-0.2); Basophils % 0.4 % (0.0-0.8); Eosinophils # 0.6 10*3/uL (0.0-0.87); Hematocrit 46.7 VOL% (35.7-47.0); Hemoglobin 15.4 GM/DL (12.0-16.0); Immature Granulocytes % 1.2 %; Immature Granulocytes Absolute 0.16 #; Lymphocytes # 1.1 10*3/uL (1.4-4.0); Lymphocytes % 7.9 % (21.3-54.2); Mean Corpuscular Volume 88.6 FL (87-102); Mean Platelet Volume 10.7 FL (9.6-12.0); Monocytes % 10.8 % (1.7-12.7); Neutrophils % 75.7 % (38.7-73.9); Platelet Count 256 T/CUMM (130-400); Red Blood Count 5.27 MC/CUMM (3.8-5.5); White Blood Count 13.8 T/CUMM (4-12)
[2020-04-26 05:51] LABS: Albumin 2.6 G/DL (3.4-5.0); Bilirubin,Total 1.5 MG/DL (0.2-1.0); Calcium 8.8 MG/DL (8.5-10.1); Total Protein 6.7 G/DL (6.4-8.3)
[2020-04-26] MEDS: ENOXAPARIN 40 MG/0.4 ML SYRINGE SUBCUT SCH ×2 (08:06→20:43)
[2020-04-26] MEDS: amLODIPine 5 MG TABLET PO SCH (08:07)
[2020-04-26] MEDS: CHOLECALCIFEROL 1,000 UNIT TABLET PO SCH (08:07)
[2020-04-26] MEDS: PANTOPRAZOLE 40 MG TABLET PO SCH (08:07)
[2020-04-26] MEDS: ZINC GLUCONATE 50 MG TABLET PO SCH (08:07)
[2020-04-26] MEDS: carvediloL 25 MG TABLET PO SCH ×2 (08:07→20:44)
[2020-04-26] MEDS: INSULIN LISPRO 100 UNIT/ML SUBCUT SCH ×4 (08:07→20:44)
[2020-04-26] MEDS: MONTELUKAST 10 MG TABLET PO SCH (08:07)
[2020-04-26] MEDS: LEVOTHYROXINE 100 MCG TABLET PO SCH (08:07)
[2020-04-26] MEDS: FAMOTIDINE 20 MG TABLET PO SCH ×2 (08:07→20:44)
[2020-04-26] MEDS: allopurinoL 300 MG TABLET PO SCH (08:07)
[2020-04-26] MEDS: ASCORBIC ACID 500 MG TABLET PO SCH ×2 (08:07→20:44)
[2020-04-26] MEDS: ZINC OXIDE 16% PASTE 57 GM TUBE TOP SCH ×2 (08:07→20:44)
[2020-04-26] MEDS: CLORAZEPATE 3.75 MG TABLET PO PRN (20:44)
[2020-04-26] MEDS: guaiFENesin/DM ER 600-30 MG TABLET PO PRN (20:44)
[2020-04-27] MEDS: guaiFENesin 200 MG/10 ML UDCUP PO PRN ×2 (04:02→17:25)
[2020-04-27] MEDS: LEVOTHYROXINE 100 MCG TABLET PO SCH (06:11)
[2020-04-27 06:14] LABS: Basophils % 0.2 % (0.0-0.8); Eosinophils # 0.5 10*3/uL (0.0-0.87); Eosinophils % 5.1 % (0.00-10.9); Hematocrit 45.9 VOL% (35.7-47.0); Immature Granulocytes % 0.9 %; Lymphocytes % 9.5 % (21.3-54.2); Mean Corpuscular HGB Conc 32.7 GM/DL (32-36); Mean Corpuscular Volume 88.6 FL (87-102); Mean Platelet Volume 11.1 FL (9.6-12.0); Monocytes % 8.9 % (1.7-12.7); Neutrophils % 75.4 % (38.7-73.9); Platelet Count 197 T/CUMM (130-400); Red Blood Count 5.18 MC/CUMM (3.8-5.5); Red Cell Distribution Width 12.9 % (9.3-17.3); White Blood Count 10.7 T/CUMM (4-12)
[2020-04-27 06:38] LABS: Calcium 8.8 MG/DL (8.5-10.1); Osmolality,Calculated 276.8 MOS/KG (273-304)
[2020-04-27] MEDS ORDERED: MAGNESIUM SULF RIDER 4 GM in PREMIX 1 EACH IV PRN (07:53)
[2020-04-27] MEDS: INSULIN LISPRO 100 UNIT/ML SUBCUT SCH ×4 (07:59→20:56)
[2020-04-27] MEDS: ASCORBIC ACID 500 MG TABLET PO SCH ×2 (08:49→20:51)
[2020-04-27] MEDS: allopurinoL 300 MG TABLET PO SCH (08:49)
[2020-04-27] MEDS: ENOXAPARIN 40 MG/0.4 ML SYRINGE SUBCUT SCH ×2 (08:49→20:55)
[2020-04-27] MEDS: MONTELUKAST 10 MG TABLET PO SCH (08:49)
[2020-04-27] MEDS: ZINC OXIDE 16% PASTE 57 GM TUBE TOP SCH ×2 (08:49→20:56)
[2020-04-27] MEDS: CHOLECALCIFEROL 1,000 UNIT TABLET PO SCH (08:49)
[2020-04-27] MEDS: ZINC GLUCONATE 50 MG TABLET PO SCH (08:49)
[2020-04-27] MEDS: carvediloL 25 MG TABLET PO SCH ×2 (08:49→20:51)
[2020-04-27] MEDS: amLODIPine 5 MG TABLET PO SCH (08:49)
[2020-04-27] MEDS: FAMOTIDINE 20 MG TABLET PO SCH ×2 (08:49→20:51)
[2020-04-27] MEDS: PANTOPRAZOLE 40 MG TABLET PO SCH (08:49)
[2020-04-27] MEDS: POTASSIUM CHLORIDE 20 MEQ TABLET PO PRN ×2 (12:45→17:25)
[2020-04-27] MEDS ORDERED: TUBERCULIN SKIN TEST 0.1 ML SYRINGE INTRADERM ONE (14:51)
[2020-04-27] MEDS: MELATONIN 3 MG TABLET PO PRN (20:51)
[2020-04-27] MEDS: CLORAZEPATE 3.75 MG TABLET PO PRN (20:52)
[2020-04-28 04:11] LABS: Basophils % 0.1 % (0.0-0.8); Eosinophils # 0.4 10*3/uL (0.0-0.87); Eosinophils % 3.7 % (0.00-10.9); Hematocrit 42.5 VOL% (35.7-47.0); Hemoglobin 13.5 GM/DL (12.0-16.0); Immature Granulocytes % 0.7 %; Immature Granulocytes Absolute 0.08 #; Lymphocytes % 9.6 % (21.3-54.2); Mean Corpuscular HGB Conc 31.8 GM/DL (32-36); Mean Corpuscular Volume 90.2 FL (87-102); Mean Platelet Volume 10.9 FL (9.6-12.0); Monocytes % 11.5 % (1.7-12.7); Neutrophils % 74.4 % (38.7-73.9); Platelet Count 178 T/CUMM (130-400); Red Blood Count 4.71 MC/CUMM (3.8-5.5); Red Cell Distribution Width 13.1 % (9.3-17.3); White Blood Count 10.8 T/CUMM (4-12)
[2020-04-28 04:42] LABS: Ferritin 224.3 ng/ml (8-252)
[2020-04-28 04:43] LABS: Albumin 2.3 G/DL (3.4-5.0); Bilirubin,Total 0.9 MG/DL (0.2-1.0); Calcium 8.7 MG/DL (8.5-10.1); Osmolality,Calculated 274.2 MOS/KG (273-304); Total Protein 6.1 G/DL (6.4-8.3)
[2020-04-28] MEDS: LEVOTHYROXINE 100 MCG TABLET PO SCH (06:03)
[2020-04-28] MEDS: INSULIN LISPRO 100 UNIT/ML SUBCUT SCH ×4 (08:13→21:15)
[2020-04-28] MEDS: MONTELUKAST 10 MG TABLET PO SCH (08:14)
[2020-04-28] MEDS: allopurinoL 300 MG TABLET PO SCH (08:14)
[2020-04-28] MEDS: CHOLECALCIFEROL 1,000 UNIT TABLET PO SCH (08:14)
[2020-04-28] MEDS: FAMOTIDINE 20 MG TABLET PO SCH ×2 (08:14→21:15)
[2020-04-28] MEDS: ZINC GLUCONATE 50 MG TABLET PO SCH (08:14)
[2020-04-28] MEDS: amLODIPine 5 MG TABLET PO SCH (08:14)
[2020-04-28] MEDS: ASCORBIC ACID 500 MG TABLET PO SCH ×2 (08:14→21:15)
[2020-04-28] MEDS: PANTOPRAZOLE 40 MG TABLET PO SCH (08:14)
[2020-04-28] MEDS: ENOXAPARIN 40 MG/0.4 ML SYRINGE SUBCUT SCH ×2 (08:14→21:16)
[2020-04-28] MEDS: carvediloL 25 MG TABLET PO SCH ×2 (08:14→21:15)
[2020-04-28] MEDS: ZINC OXIDE 16% PASTE 57 GM TUBE TOP SCH ×3 (08:14→21:20)
[2020-04-28] MEDS: methylPREDNISolone SOD SUC 40 MG/1 ML VIAL IV SCH ×2 (12:30→21:20)
[2020-04-28] MEDS: guaiFENesin 200 MG/10 ML UDCUP PO PRN ×3 (14:08→21:20)
[2020-04-28] MEDS: LIDOCAINE 5% PATCH TRANSDERM SCH (17:14)
[2020-04-29] MEDS: ACETAMINOPHEN 325 MG TABLET PO PRN (02:51)
[2020-04-29] MEDS: CLORAZEPATE 3.75 MG TABLET PO PRN ×2 (02:51→20:20)
[2020-04-29 06:34] LABS: Basophils % 0.2 % (0.0-0.8); Immature Granulocytes Absolute 0.09 #; Lymphocytes # 0.6 10*3/uL (1.4-4.0); Lymphocytes % 7.1 % (21.3-54.2); Mean Corpuscular HGB Conc 31.8 GM/DL (32-36); Mean Corpuscular Volume 93.2 FL (87-102); Mean Platelet Volume 11.6 FL (9.6-12.0); Neutrophils % 89.7 % (38.7-73.9); Platelet Count 169 T/CUMM (130-400); Red Blood Count 4.72 MC/CUMM (3.8-5.5); Red Cell Distribution Width 13.2 % (9.3-17.3)
[2020-04-29 07:17] LABS: Calcium 9.5 MG/DL (8.5-10.1); Osmolality,Calculated 283.7 MOS/KG (273-304)
[2020-04-29] MEDS: PANTOPRAZOLE 40 MG TABLET PO SCH (09:40)
[2020-04-29] MEDS: ZINC GLUCONATE 50 MG TABLET PO SCH (09:40)
[2020-04-29] MEDS: LEVOTHYROXINE 100 MCG TABLET PO SCH (09:40)
[2020-04-29] MEDS: FAMOTIDINE 20 MG TABLET PO SCH ×2 (09:40→20:20)
[2020-04-29] MEDS: LIDOCAINE 5% PATCH TRANSDERM SCH (09:40)
[2020-04-29] MEDS: ASCORBIC ACID 500 MG TABLET PO SCH ×2 (09:40→20:20)
[2020-04-29] MEDS: MONTELUKAST 10 MG TABLET PO SCH (09:40)
[2020-04-29] MEDS: allopurinoL 300 MG TABLET PO SCH (09:40)
[2020-04-29] MEDS: amLODIPine 5 MG TABLET PO SCH (09:40)
[2020-04-29] MEDS: methylPREDNISolone SOD SUC 40 MG/1 ML VIAL IV SCH ×2 (09:40→20:30)
[2020-04-29] MEDS: ZINC OXIDE 16% PASTE 57 GM TUBE TOP SCH ×2 (09:40→20:20)
[2020-04-29] MEDS: CHOLECALCIFEROL 1,000 UNIT TABLET PO SCH (09:40)
[2020-04-29] MEDS: MAGNESIUM SULF RIDER 2 GM in PREMIX 1 EACH IV PRN (09:40)
[2020-04-29] MEDS: carvediloL 25 MG TABLET PO SCH ×2 (09:40→20:20)
[2020-04-29] MEDS: INSULIN LISPRO 100 UNIT/ML SUBCUT SCH ×4 (09:40→21:28)
[2020-04-29] MEDS: ENOXAPARIN 40 MG/0.4 ML SYRINGE SUBCUT SCH ×2 (09:40→20:20)
[2020-04-29] MEDS: guaiFENesin 200 MG/10 ML UDCUP PO PRN (20:20)
[2020-04-30] MEDS: ACETAMINOPHEN 325 MG TABLET PO PRN ×2 (00:25→06:23)
[2020-04-30 05:48] LABS: Basophils % 0.1 % (0.0-0.8); Hematocrit 43.7 VOL% (35.7-47.0); Hemoglobin 13.7 GM/DL (12.0-16.0); Immature Granulocytes % 0.9 %; Lymphocytes # 0.8 10*3/uL (1.4-4.0); Lymphocytes % 7.5 % (21.3-54.2); Mean Corpuscular HGB Conc 31.4 GM/DL (32-36); Mean Corpuscular Volume 93.4 FL (87-102); Mean Platelet Volume 10.7 FL (9.6-12.0); Monocytes % 3.8 % (1.7-12.7); Neutrophils % 87.7 % (38.7-73.9); Platelet Count 193 T/CUMM (130-400); Red Blood Count 4.68 MC/CUMM (3.8-5.5); Red Cell Distribution Width 13.5 % (9.3-17.3); White Blood Count 10.7 T/CUMM (4-12)
[2020-04-30 06:12] LABS: Albumin 2.3 G/DL (3.4-5.0); Bilirubin,Total 0.4 MG/DL (0.2-1.0); Calcium 9.3 MG/DL (8.5-10.1); Ferritin 291.1 ng/ml (8-252); Osmolality,Calculated 281.2 MOS/KG (273-304); Total Protein 6.6 G/DL (6.4-8.3)
[2020-04-30] MEDS: LEVOTHYROXINE 100 MCG TABLET PO SCH (06:22)
[2020-04-30] MEDS: CLORAZEPATE 3.75 MG TABLET PO PRN ×2 (06:23→21:22)
[2020-04-30] MEDS ORDERED: FUROSEMIDE 40 MG/4 ML VIAL IV ONE (07:36)
[2020-04-30] MEDS: INSULIN LISPRO 100 UNIT/ML SUBCUT SCH ×4 (09:25→21:22)
[2020-04-30] MEDS: guaiFENesin/DM ER 600-30 MG TABLET PO PRN ×2 (09:30→21:21)
[2020-04-30] MEDS: MONTELUKAST 10 MG TABLET PO SCH (09:31)
[2020-04-30] MEDS: CHOLECALCIFEROL 1,000 UNIT TABLET PO SCH (09:31)
[2020-04-30] MEDS: PANTOPRAZOLE 40 MG TABLET PO SCH (09:31)
[2020-04-30] MEDS: ZINC GLUCONATE 50 MG TABLET PO SCH (09:31)
[2020-04-30] MEDS: FAMOTIDINE 20 MG TABLET PO SCH ×2 (09:31→21:21)
[2020-04-30] MEDS: ASCORBIC ACID 500 MG TABLET PO SCH ×2 (09:31→21:21)
[2020-04-30] MEDS: allopurinoL 300 MG TABLET PO SCH (09:32)
[2020-04-30] MEDS: ENOXAPARIN 40 MG/0.4 ML SYRINGE SUBCUT SCH ×2 (09:34→21:21)
[2020-04-30] MEDS: LIDOCAINE 5% PATCH TRANSDERM SCH (09:35)
[2020-04-30] MEDS: carvediloL 25 MG TABLET PO SCH ×2 (09:36→21:21)
[2020-04-30] MEDS: methylPREDNISolone SOD SUC 40 MG/1 ML VIAL IV SCH (09:37)
[2020-04-30] MEDS: amLODIPine 5 MG TABLET PO SCH (09:43)
[2020-04-30 09:56] LABS: ABG Base Excess 8.2 MMOL/L (-2.5-2.5); ABG HCO3 31.6 MMOL/L (20-26); ABG Oxygen Saturation 86.7 % (95-100); ABG PCO2 44.8 MM HG (35-48); ABG PH 7.475 (7.35-7.45); ABG PO2 50.1 MM HG (80-95)
[2020-04-30] MEDS: ZINC OXIDE 16% PASTE 57 GM TUBE TOP SCH ×2 (10:30→21:21)
[2020-04-30] MEDS: ALPRAZolam 0.5 MG TABLET PO PRN (11:43)
[2020-04-30] MEDS: INSULIN GLARGINE 100 UNIT/ML SUBCUT SCH (21:21)
[2020-05-01 04:37] LABS: ABG Base Excess 10.1 MMOL/L (-2.5-2.5); ABG HCO3 35.8 MMOL/L (20-26); ABG Oxygen Saturation 93.2 % (95-100); ABG PCO2 52.4 MM HG (35-48); ABG PH 7.453 (7.35-7.45); ABG PO2 63.4 MM HG (80-95); ABG TCO2 37.5 MMOL/L (23-27)
[2020-05-01] MEDS: LEVOTHYROXINE 100 MCG TABLET PO SCH (06:09)
[2020-05-01 08:16] LABS: Basophils % 0.1 % (0.0-0.8); Eosinophils # 0.1 10*3/uL (0.0-0.87); Eosinophils % 0.3 % (0.00-10.9); Hematocrit 43.8 VOL% (35.7-47.0); Hemoglobin 13.9 GM/DL (12.0-16.0); Immature Granulocytes % 0.9 %; Immature Granulocytes Absolute 0.14 #; Lymphocytes # 1.7 10*3/uL (1.4-4.0); Lymphocytes % 10.8 % (21.3-54.2); Mean Corpuscular HGB Conc 31.7 GM/DL (32-36); Mean Corpuscular Volume 92.2 FL (87-102); Mean Platelet Volume 10.5 FL (9.6-12.0); Monocytes % 12.9 % (1.7-12.7); Red Blood Count 4.75 MC/CUMM (3.8-5.5); Red Cell Distribution Width 13.5 % (9.3-17.3)
[2020-05-01 08:18] LABS: Platelet Count 250 T/CUMM (130-400); White Blood Count 15.3 T/CUMM (4-12)
[2020-05-01 08:46] LABS: Albumin 2.4 G/DL (3.4-5.0); Bilirubin,Total 0.8 MG/DL (0.2-1.0); Osmolality,Calculated 269.4 MOS/KG (273-304); Total Protein 6.6 G/DL (6.4-8.3)
[2020-05-01] MEDS ORDERED: FUROSEMIDE 40 MG/4 ML VIAL IV ONE (09:32)
[2020-05-01] MEDS: LIDOCAINE 5% PATCH TRANSDERM SCH (09:56)
[2020-05-01] MEDS: ZINC GLUCONATE 50 MG TABLET PO SCH (09:57)
[2020-05-01] MEDS: CLORAZEPATE 3.75 MG TABLET PO PRN ×2 (09:57→20:25)
[2020-05-01] MEDS: carvediloL 25 MG TABLET PO SCH ×2 (09:57→20:25)
[2020-05-01] MEDS: PANTOPRAZOLE 40 MG TABLET PO SCH (09:57)
[2020-05-01] MEDS: DOCUSATE SODIUM 100 MG CAPSULE PO PRN (09:57)
[2020-05-01] MEDS: MONTELUKAST 10 MG TABLET PO SCH (09:58)
[2020-05-01] MEDS: guaiFENesin/DM ER 600-30 MG TABLET PO PRN ×2 (09:58→20:25)
[2020-05-01] MEDS: FAMOTIDINE 20 MG TABLET PO SCH ×2 (09:58→20:25)
[2020-05-01] MEDS: allopurinoL 300 MG TABLET PO SCH (09:58)
[2020-05-01] MEDS: amLODIPine 5 MG TABLET PO SCH (09:58)
[2020-05-01] MEDS: ASCORBIC ACID 500 MG TABLET PO SCH ×2 (09:58→20:25)
[2020-05-01] MEDS: ENOXAPARIN 40 MG/0.4 ML SYRINGE SUBCUT SCH ×2 (09:59→20:25)
[2020-05-01] MEDS: CHOLECALCIFEROL 1,000 UNIT TABLET PO SCH (09:59)
[2020-05-01] MEDS: INSULIN LISPRO 100 UNIT/ML SUBCUT SCH ×4 (10:00→20:36)
[2020-05-01] MEDS: ZINC OXIDE 16% PASTE 57 GM TUBE TOP SCH ×2 (10:00→20:25)
[2020-05-01] MEDS: INSULIN GLARGINE 100 UNIT/ML SUBCUT SCH (20:34)
[2020-05-02 03:28] LABS: ABG Base Excess 11.3 MMOL/L (-2.5-2.5); ABG HCO3 34.9 MMOL/L (20-26); ABG Oxygen Saturation 90.2 % (95-100); ABG PCO2 55.4 MM HG (35-48); ABG PH 7.444 (7.35-7.45); ABG PO2 57.1 MM HG (80-95)
[2020-05-02] MEDS: LEVOTHYROXINE 100 MCG TABLET PO SCH (06:01)
[2020-05-02 06:43] LABS: Basophils % 0.1 % (0.0-0.8); Eosinophils # 0.4 10*3/uL (0.0-0.87); Eosinophils % 3.8 % (0.00-10.9); Hematocrit 45.1 VOL% (35.7-47.0); Hemoglobin 13.7 GM/DL (12.0-16.0); Immature Granulocytes % 0.5 %; Immature Granulocytes Absolute 0.06 #; Lymphocytes # 0.9 10*3/uL (1.4-4.0); Lymphocytes % 8.5 % (21.3-54.2); Mean Corpuscular HGB Conc 30.4 GM/DL (32-36); Mean Corpuscular Volume 95.3 FL (87-102); Mean Platelet Volume 10.4 FL (9.6-12.0); Monocytes % 12.8 % (1.7-12.7); Neutrophils % 74.3 % (38.7-73.9); Platelet Count 204 T/CUMM (130-400); Red Blood Count 4.73 MC/CUMM (3.8-5.5); Red Cell Distribution Width 13.5 % (9.3-17.3)
[2020-05-02 06:59] LABS: Albumin 2.4 G/DL (3.4-5.0); Bilirubin,Total 0.6 MG/DL (0.2-1.0); Calcium 8.8 MG/DL (8.5-10.1); Osmolality,Calculated 281.5 MOS/KG (273-304); Total Protein 6.1 G/DL (6.4-8.3)
[2020-05-02] MEDS: INSULIN LISPRO 100 UNIT/ML SUBCUT SCH ×4 (09:19→20:34)
[2020-05-02] MEDS: ZINC OXIDE 16% PASTE 57 GM TUBE TOP SCH ×2 (09:19→20:34)
[2020-05-02] MEDS: LIDOCAINE 5% PATCH TRANSDERM SCH (09:20)
[2020-05-02] MEDS: ENOXAPARIN 40 MG/0.4 ML SYRINGE SUBCUT SCH ×2 (09:20→20:34)
[2020-05-02] MEDS: MONTELUKAST 10 MG TABLET PO SCH (09:21)
[2020-05-02] MEDS: CHOLECALCIFEROL 1,000 UNIT TABLET PO SCH (09:21)
[2020-05-02] MEDS: carvediloL 25 MG TABLET PO SCH ×2 (09:21→20:34)
[2020-05-02] MEDS: amLODIPine 5 MG TABLET PO SCH (09:21)
[2020-05-02] MEDS: ZINC GLUCONATE 50 MG TABLET PO SCH (09:21)
[2020-05-02] MEDS: ASCORBIC ACID 500 MG TABLET PO SCH ×2 (09:21→20:34)
[2020-05-02] MEDS: PANTOPRAZOLE 40 MG TABLET PO SCH (09:22)
[2020-05-02] MEDS: FAMOTIDINE 20 MG TABLET PO SCH ×2 (09:22→20:34)
[2020-05-02] MEDS: allopurinoL 300 MG TABLET PO SCH (09:22)
[2020-05-02] MEDS: INSULIN GLARGINE 100 UNIT/ML SUBCUT SCH (20:20)
[2020-05-02] MEDS: CLORAZEPATE 3.75 MG TABLET PO PRN (20:34)
[2020-05-02] MEDS: guaiFENesin/DM ER 600-30 MG TABLET PO PRN (20:34)
[2020-05-02] MEDS: MELATONIN 3 MG TABLET PO PRN (20:34)
[2020-05-02] MEDS: DOCUSATE SODIUM 100 MG CAPSULE PO PRN (20:58)
[2020-05-02] MEDS: LACTULOSE 20 GM/30 ML UDCUP PO PRN (20:58)
[2020-05-03] MEDS: ALPRAZolam 0.5 MG TABLET PO PRN (04:05)
[2020-05-03 06:04] LABS: Basophils % 0.1 % (0.0-0.8); Eosinophils # 0.3 10*3/uL (0.0-0.87); Eosinophils % 3.1 % (0.00-10.9); Hematocrit 39.9 VOL% (35.7-47.0); Hemoglobin 12.2 GM/DL (12.0-16.0); Immature Granulocytes % 0.6 %; Immature Granulocytes Absolute 0.06 #; Lymphocytes # 0.7 10*3/uL (1.4-4.0); Lymphocytes % 6.5 % (21.3-54.2); Mean Corpuscular HGB Conc 30.6 GM/DL (32-36); Mean Corpuscular Volume 94.8 FL (87-102); Mean Platelet Volume 10.9 FL (9.6-12.0); Monocytes % 10.3 % (1.7-12.7); Neutrophils % 79.4 % (38.7-73.9); Platelet Count 146 T/CUMM (130-400); Red Blood Count 4.21 MC/CUMM (3.8-5.5); Red Cell Distribution Width 13.9 % (9.3-17.3)
[2020-05-03] MEDS: LEVOTHYROXINE 100 MCG TABLET PO SCH (06:25)
[2020-05-03 06:32] LABS: Bilirubin,Total 0.8 MG/DL (0.2-1.0); Calcium 8.7 MG/DL (8.5-10.1); Osmolality,Calculated 285.4 MOS/KG (273-304); Total Protein 5.6 G/DL (6.4-8.3)
[2020-05-03] MEDS: INSULIN LISPRO 100 UNIT/ML SUBCUT SCH ×4 (07:40→20:45)
[2020-05-03] MEDS: MAGNESIUM SULF RIDER 2 GM in PREMIX 1 EACH IV PRN (09:34)
[2020-05-03] MEDS: ENOXAPARIN 40 MG/0.4 ML SYRINGE SUBCUT SCH ×2 (09:35→20:45)
[2020-05-03] MEDS: MONTELUKAST 10 MG TABLET PO SCH (09:35)
[2020-05-03] MEDS: ASCORBIC ACID 500 MG TABLET PO SCH ×2 (09:36→20:45)
[2020-05-03] MEDS: POTASSIUM CHLORIDE 20 MEQ TABLET PO PRN ×3 (09:36→17:16)
[2020-05-03] MEDS: ZINC GLUCONATE 50 MG TABLET PO SCH (09:36)
[2020-05-03] MEDS: CHOLECALCIFEROL 1,000 UNIT TABLET PO SCH (09:36)
[2020-05-03] MEDS: PANTOPRAZOLE 40 MG TABLET PO SCH (09:37)
[2020-05-03] MEDS: FAMOTIDINE 20 MG TABLET PO SCH ×2 (09:37→20:45)
[2020-05-03] MEDS: allopurinoL 300 MG TABLET PO SCH (09:37)
[2020-05-03] MEDS: carvediloL 25 MG TABLET PO SCH ×3 (09:37→20:45)
[2020-05-03] MEDS: amLODIPine 5 MG TABLET PO SCH ×2 (09:37→09:41)
[2020-05-03] MEDS: FUROSEMIDE 40 MG/4 ML VIAL IV SCH ×2 (09:41→11:03)
[2020-05-03] MEDS: ZINC OXIDE 16% PASTE 57 GM TUBE TOP SCH ×2 (09:41→20:45)
[2020-05-03] MEDS: LIDOCAINE 5% PATCH TRANSDERM SCH (09:41)
[2020-05-03] MEDS ORDERED: POTASSIUM CHLORIDE 20 MEQ TABLET PO ONE (14:00)
[2020-05-03] MEDS: MELATONIN 3 MG TABLET PO PRN (20:45)
[2020-05-03] MEDS: guaiFENesin/DM ER 600-30 MG TABLET PO PRN (20:45)
[2020-05-03] MEDS: INSULIN GLARGINE 100 UNIT/ML SUBCUT SCH (20:45)
[2020-05-03] MEDS: CLORAZEPATE 3.75 MG TABLET PO PRN (20:45)
[2020-05-04] MEDS: ALPRAZolam 0.5 MG TABLET PO PRN ×4 (03:36→22:26)
[2020-05-04] MEDS: guaiFENesin 200 MG/10 ML UDCUP PO PRN (03:36)
[2020-05-04] MEDS: LEVOTHYROXINE 100 MCG TABLET PO SCH (06:00)
[2020-05-04 06:12] LABS: Basophils % 0.1 % (0.0-0.8); Eosinophils # 0.3 10*3/uL (0.0-0.87); Eosinophils % 2.1 % (0.00-10.9); Hematocrit 41.6 VOL% (35.7-47.0); Immature Granulocytes % 0.7 %; Lymphocytes # 0.7 10*3/uL (1.4-4.0); Mean Corpuscular HGB Conc 31.3 GM/DL (32-36); Mean Corpuscular Volume 93.5 FL (87-102); Mean Platelet Volume 10.9 FL (9.6-12.0); Neutrophils % 83.1 % (38.7-73.9); Platelet Count 157 T/CUMM (130-400); Red Blood Count 4.45 MC/CUMM (3.8-5.5); Red Cell Distribution Width 14.3 % (9.3-17.3); White Blood Count 14.5 T/CUMM (4-12)
[2020-05-04 06:16] LABS: Albumin 2.1 G/DL (3.4-5.0); Bilirubin,Total 0.9 MG/DL (0.2-1.0); Calcium 9.3 MG/DL (8.5-10.1); Osmolality,Calculated 294.1 MOS/KG (273-304); Total Protein 6.5 G/DL (6.4-8.3)
[2020-05-04 06:26] LABS: Calcium 8.8 MG/DL (8.5-10.1); Osmolality,Calculated 289.4 MOS/KG (273-304)
[2020-05-04 06:29] LABS: Hypochromasia 1+; Microcytosis 1+; Platelet Estimate Adequate
[2020-05-04] MEDS ORDERED: LORazepam 2 MG/1 ML VIAL IV ONE (06:43)
[2020-05-04 09:16] LABS: ABG Base Excess 10.2 MMOL/L (-2.5-2.5); ABG HCO3 35.7 MMOL/L (20-26); ABG Oxygen Saturation 77.6 % (95-100); ABG PCO2 50.7 MM HG (35-48); ABG PH 7.465 (7.35-7.45); ABG PO2 41.3 MM HG (80-95); ABG TCO2 37.2 MMOL/L (23-27)
[2020-05-04] MEDS ORDERED: MORPHINE 4 MG/1 ML VIAL ONE (10:28)
[2020-05-04] MEDS: INSULIN LISPRO 100 UNIT/ML SUBCUT SCH ×4 (10:37→21:27)
[2020-05-04] MEDS: methylPREDNISolone SOD SUC 40 MG/1 ML VIAL IV SCH ×3 (10:38→21:20)
[2020-05-04] MEDS: ENOXAPARIN 40 MG/0.4 ML SYRINGE SUBCUT SCH ×2 (10:38→21:20)
[2020-05-04] MEDS: carvediloL 25 MG TABLET PO SCH ×2 (10:38→21:20)
[2020-05-04] MEDS: ZINC OXIDE 16% PASTE 57 GM TUBE TOP SCH ×2 (10:50→21:29)
[2020-05-04] MEDS: LIDOCAINE 5% PATCH TRANSDERM SCH (10:50)
[2020-05-04] MEDS: MORPHINE 4 MG/1 ML VIAL IV PRN ×3 (10:50→22:27)
[2020-05-04 11:03] VITALS: BP 128/78
[2020-05-04] MEDS: amLODIPine 5 MG TABLET PO SCH (14:33)
[2020-05-04] MEDS: CHOLECALCIFEROL 1,000 UNIT TABLET PO SCH (14:34)
[2020-05-04] MEDS: MONTELUKAST 10 MG TABLET PO SCH (14:34)
[2020-05-04] MEDS: FAMOTIDINE 20 MG TABLET PO SCH ×2 (14:34→21:21)
[2020-05-04] MEDS: ASCORBIC ACID 500 MG TABLET PO SCH ×2 (14:34→21:21)
[2020-05-04] MEDS: PANTOPRAZOLE 40 MG TABLET PO SCH (14:34)
[2020-05-04] MEDS: allopurinoL 300 MG TABLET PO SCH (14:35)
[2020-05-04] MEDS: ZINC GLUCONATE 50 MG TABLET PO SCH (14:35)
[2020-05-04] MEDS: FUROSEMIDE 40 MG/4 ML VIAL IV SCH ×2 (15:06→15:35)
[2020-05-04] MEDS: INSULIN GLARGINE 100 UNIT/ML SUBCUT SCH (21:21)
[2020-05-05] MEDS: methylPREDNISolone SOD SUC 40 MG/1 ML VIAL IV SCH ×4 (04:05→21:47)
[2020-05-05 04:25] LABS: Basophils % 0.1 % (0.0-0.8); Hematocrit 37.9 VOL% (35.7-47.0); Hemoglobin 11.7 GM/DL (12.0-16.0); Immature Granulocytes % 0.5 %; Immature Granulocytes Absolute 0.04 #; Lymphocytes # 0.7 10*3/uL (1.4-4.0); Lymphocytes % 8.1 % (21.3-54.2); Mean Corpuscular HGB Conc 30.9 GM/DL (32-36); Mean Platelet Volume 10.8 FL (9.6-12.0); Monocytes % 2.3 % (1.7-12.7); Red Blood Count 4.03 MC/CUMM (3.8-5.5); Red Cell Distribution Width 14.2 % (9.3-17.3)
[2020-05-05 04:28] LABS: Platelet Count 118 T/CUMM (130-400)
[2020-05-05 04:53] LABS: Albumin 1.8 G/DL (3.4-5.0); Bilirubin,Total 0.8 MG/DL (0.2-1.0); Calcium 9.1 MG/DL (8.5-10.1); Osmolality,Calculated 297.1 MOS/KG (273-304); Total Protein 5.8 G/DL (6.4-8.3)
[2020-05-05 04:56] LABS: Hypochromasia 1+; Microcytosis 1+
[2020-05-05 04:57] LABS: Platelet Estimate Adequate
[2020-05-05] MEDS: LEVOTHYROXINE 100 MCG TABLET PO SCH (06:11)
[2020-05-05] MEDS: MONTELUKAST 10 MG TABLET PO SCH (08:36)
[2020-05-05] MEDS: PANTOPRAZOLE 40 MG TABLET PO SCH (08:36)
[2020-05-05] MEDS: CLORAZEPATE 3.75 MG TABLET PO PRN (08:36)
[2020-05-05] MEDS: ASCORBIC ACID 500 MG TABLET PO SCH ×2 (08:36→20:18)
[2020-05-05] MEDS: FAMOTIDINE 20 MG TABLET PO SCH ×2 (08:36→20:18)
[2020-05-05] MEDS: allopurinoL 300 MG TABLET PO SCH (08:36)
[2020-05-05] MEDS: guaiFENesin/DM ER 600-30 MG TABLET PO PRN (08:36)
[2020-05-05] MEDS: ZINC GLUCONATE 50 MG TABLET PO SCH (08:36)
[2020-05-05] MEDS: amLODIPine 5 MG TABLET PO SCH (08:37)
[2020-05-05] MEDS: CHOLECALCIFEROL 1,000 UNIT TABLET PO SCH (08:37)
[2020-05-05] MEDS: ENOXAPARIN 40 MG/0.4 ML SYRINGE SUBCUT SCH ×2 (08:37→20:19)
[2020-05-05] MEDS: carvediloL 25 MG TABLET PO SCH ×2 (08:37→22:06)
[2020-05-05] MEDS: LIDOCAINE 5% PATCH TRANSDERM SCH (08:38)
[2020-05-05] MEDS: FUROSEMIDE 40 MG/4 ML VIAL IV SCH (08:39)
[2020-05-05] MEDS: INSULIN LISPRO 100 UNIT/ML SUBCUT SCH ×4 (09:15→20:19)
[2020-05-05] MEDS: ZINC OXIDE 16% PASTE 57 GM TUBE TOP SCH ×2 (09:15→22:06)
[2020-05-05] MEDS: ALPRAZolam 0.5 MG TABLET PO PRN ×2 (13:44→20:18)
[2020-05-05] MEDS: MORPHINE 4 MG/1 ML VIAL IV PRN (20:18)
[2020-05-05] MEDS: INSULIN GLARGINE 100 UNIT/ML SUBCUT SCH (20:20)
[2020-05-06] MEDS: MORPHINE 4 MG/1 ML VIAL IV PRN ×4 (00:57→23:06)
[2020-05-06] MEDS: methylPREDNISolone SOD SUC 40 MG/1 ML VIAL IV SCH ×4 (03:41→21:00)
[2020-05-06 04:08] LABS: Basophils % 0.1 % (0.0-0.8); Hematocrit 41.9 VOL% (35.7-47.0); Hemoglobin 12.8 GM/DL (12.0-16.0); Immature Granulocytes % 0.7 %; Immature Granulocytes Absolute 0.07 #; Lymphocytes # 0.7 10*3/uL (1.4-4.0); Lymphocytes % 6.9 % (21.3-54.2); Mean Corpuscular HGB Conc 30.5 GM/DL (32-36); Mean Corpuscular Volume 93.9 FL (87-102); Neutrophils % 88.3 % (38.7-73.9); Platelet Count 167 T/CUMM (130-400); Red Blood Count 4.46 MC/CUMM (3.8-5.5); Red Cell Distribution Width 14.3 % (9.3-17.3); White Blood Count 9.5 T/CUMM (4-12)
[2020-05-06 05:17] LABS: Albumin 1.9 G/DL (3.4-5.0); Bilirubin,Total 0.6 MG/DL (0.2-1.0); Calcium 9.4 MG/DL (8.5-10.1); Osmolality,Calculated 302.1 MOS/KG (273-304); Total Protein 6.3 G/DL (6.4-8.3)
[2020-05-06] MEDS: LEVOTHYROXINE 100 MCG TABLET PO SCH (06:03)
[2020-05-06] MEDS: ALPRAZolam 0.5 MG TABLET PO PRN (06:03)
[2020-05-06] MEDS: LIDOCAINE 5% PATCH TRANSDERM SCH (08:38)
[2020-05-06] MEDS: ENOXAPARIN 40 MG/0.4 ML SYRINGE SUBCUT SCH ×2 (08:39→20:58)
[2020-05-06] MEDS: carvediloL 25 MG TABLET PO SCH ×2 (08:39→20:58)
[2020-05-06] MEDS: CHOLECALCIFEROL 1,000 UNIT TABLET PO SCH (08:39)
[2020-05-06] MEDS: MONTELUKAST 10 MG TABLET PO SCH (08:39)
[2020-05-06] MEDS: amLODIPine 5 MG TABLET PO SCH (08:39)
[2020-05-06] MEDS: FAMOTIDINE 20 MG TABLET PO SCH ×2 (08:39→20:59)
[2020-05-06] MEDS: ASCORBIC ACID 500 MG TABLET PO SCH ×2 (08:39→20:59)
[2020-05-06] MEDS: guaiFENesin/DM ER 600-30 MG TABLET PO PRN (08:39)
[2020-05-06] MEDS: CLORAZEPATE 3.75 MG TABLET PO PRN (08:39)
[2020-05-06] MEDS: PANTOPRAZOLE 40 MG TABLET PO SCH (08:39)
[2020-05-06] MEDS: allopurinoL 300 MG TABLET PO SCH (08:39)
[2020-05-06] MEDS: ZINC GLUCONATE 50 MG TABLET PO SCH (08:39)
[2020-05-06] MEDS: INSULIN LISPRO 100 UNIT/ML SUBCUT SCH ×4 (08:40→20:58)
[2020-05-06] MEDS: FUROSEMIDE 40 MG/4 ML VIAL IV SCH (08:40)
[2020-05-06] MEDS: ZINC OXIDE 16% PASTE 57 GM TUBE TOP SCH ×2 (08:40→20:58)
[2020-05-06] MEDS: INSULIN GLARGINE 100 UNIT/ML SUBCUT SCH (20:58)
[2020-05-06] MEDS ORDERED: LORazepam 2 MG/1 ML VIAL IV PRN (21:25)
[2020-05-06] MEDS: LORazepam 2 MG/1 ML VIAL IV PRN (23:07)
[2020-05-07] MEDS: LORazepam 2 MG/1 ML VIAL IV PRN ×3 (00:43→03:42)
[2020-05-07] MEDS: MORPHINE 4 MG/1 ML VIAL IV PRN ×6 (00:43→06:12)
[2020-05-07] MEDS: methylPREDNISolone SOD SUC 40 MG/1 ML VIAL IV SCH (04:46)
[2020-05-07 05:16] LABS: Albumin 1.9 G/DL (3.4-5.0); Calcium 9.4 MG/DL (8.5-10.1); Osmolality,Calculated 309.8 MOS/KG (273-304); Total Protein 6.3 G/DL (6.4-8.3)
[2020-05-07 05:24] LABS: Basophils # 0.1 10*3/uL (0.0-0.2); Basophils % 0.3 % (0.0-0.8); Hematocrit 44.7 VOL% (35.7-47.0); Hemoglobin 13.7 GM/DL (12.0-16.0); Immature Granulocytes % 0.6 %; Immature Granulocytes Absolute 0.11 #; Lymphocytes # 0.4 10*3/uL (1.4-4.0); Mean Corpuscular HGB Conc 30.6 GM/DL (32-36); Mean Corpuscular Volume 95.9 FL (87-102); Mean Platelet Volume 11.5 FL (9.6-12.0); Monocytes % 7.7 % (1.7-12.7); Neutrophils % 89.4 % (38.7-73.9); Platelet Count 192 T/CUMM (130-400); Red Blood Count 4.66 MC/CUMM (3.8-5.5); Red Cell Distribution Width 14.4 % (9.3-17.3); White Blood Count 18.5 T/CUMM (4-12)
[2020-05-07 05:33] LABS: Band Neutrophils 3 % (0-10); Lymphocytes 2 % (20-55); Platelet Estimate Adequate; Segmented Neutrophils 88 % (50-85); Total Cells Counted 100
[2020-05-07] MEDS: LEVOTHYROXINE 100 MCG TABLET PO SCH (06:11)
[2020-05-07] MEDS: INSULIN LISPRO 100 UNIT/ML SUBCUT SCH (07:49)
== END 2020-05-07 08:20 | disposition expired | DRG 177 ==
LOC: EDUNIT# → EDBD → N.ED 13:24 → SUATTDRO 15:34 → N.EDINP 15:34 → N.2E 19:35 → N.ICU 05-04 09:14
PROVIDERS: ADMIT Internal Medicine; ATTEND Internal Medicine